=== PATIENT | female | born 1980 | race Caucasian/White ===

== ENCOUNTER 2016-08-25 06:32 | Emergency (ER) | payer MEDICAID, OTHER ==
[2016-08-25 06:41] VITALS: TEMP 98.4
[2016-08-25] MEDS ORDERED: LORazepam 1 MG TAB ONE (07:05)
--- NOTE | 2016-08-25 07:08 | EDPHY ---
H & P Time Seen by Provider: 08/25/16 06:56 HPI/ROS: CHIEF COMPLAINT: Anxiety HISTORY OF PRESENT ILLNESS: Patient is a 35-year-old female with a history of anxiety and mood disorder who presents emergency department stating "I am having a panic attack." Patient woke at 4:30 a.m. with her panic attack. She feels anxious and agitated. She feels as though she can't catch her breath. The patient states the recently she had the stomach flu. This resulted in some mild low back pain. She drank heavily 2 nights ago had nothing to drink last night. She has no recent drug use. She denies chest pain. She describes her symptoms as typical of her anxiety. She did not take any anti anxiety medicine today. She ran out of Scholrly. She asked to speak to therapist. Patient denies suicidal or homicidal ideation REVIEW OF SYSTEMS: My complete review of systems is negative except as mentioned in the HPI. Past Medical/Surgical History: Includes mood disorder, anxiety Past surgical history: Appendectomy, tonsillectomy, tubal ligation, cholecystectomy Social history: The patient smokes occasionally. She drinks alcohol occasionally. No drug use. Smoking Status: Current every day smoker Physical Exam: My vitals noted. 36.9, 125/87, 71, 20, 98% on room air GENERAL: Anxious appearing, alert. HEENT: Eyes normal to inspection, normal pharynx, no signs of dehydration. Arion hair. NECK: No thyromegaly, no lymphadenopathy, supple. RESPIRATORY: Clear to auscultation bilaterally, no rales, rhonchi or wheezing. CVS: Regular rate and rhythm, no rubs, murmurs, or gallops. ABDOMEN: Soft, nontender, nondistended, no organomegaly. Benign BACK: Normal to inspection, no CVA tenderness. SKIN: Normal color, no rash, warm, dry. No pallor. EXTREMITIES: No pedal edema, no calf tenderness, no Homans sign or cords, no joint swelling. NEURO/PSYCH: Alert and oriented, anxious and tearful, normal motor sensory exam. Constitutional: Initial Vital Signs Temperature (C) 36.9 C 08/25/16 06:36 Heart Rate 71 08/25/16 06:36 Respiratory Rate 20 08/25/16 06:36 Blood Pressure 125/87 H 07/16/17 06:36 O2 Sat (%) 98 08/25/16 06:36 O2 Delivery Mode Room Air Allergies/Adverse Reactions: dog dander Allergy (Verified 08/25/16 06:35) morphine Allergy (Verified 08/25/16 06:35) steroids Allergy (Uncoded 08/25/16 06:35) Home Medications: Medication Instructions Recorded Lamictal 11/19/14 Paxil 11/19/14 Topamax 11/19/14 Albuterol 08/25/16 LORAZEPAM 08/25/16 LORazepam [Ativan (*)] 1 mg PO TID #11 tab 08/25/16 Medical Decision Making ED Course/Re-evaluation: In the emergency department I discussed possible etiologies with the patient. Patient will be given Ativan 2 mg orally. She agrees with this plan. She requested this see a therapist. They were contacted. Rechecked the patient on numerous occasions. She was stable during her stay. Therapy evaluated the patient. They felt she was safe for discharge. She has a good follow-up plan. On recheck the patient felt better. Patient was given warnings prior to leaving. She will return with worsening symptoms. I answered all her questions prior to leaving. She feels comfortable with the plan. Differential Diagnosis: My differential includes but is not limited to anxiety, bipolar disorder, thyroid disease, suicidal ideation, homicidal ideation, disc herniation, low back strain, dissection, aneurysm, small-bowel obstruction, pancreatitis - Data Points Medications Given: Discontinued Medications Lorazepam (Ativan Injection) 2 mg IVP EDNOW ONE Stop: 08/25/16 07:11 Last Admin: 08/25/16 07:12 Dose: 2 mg Departure - Departure Disposition: Home, Routine, Self-Care Clinical Impression: Anxiety Condition: Good Instructions: Anxiety (ED) Additional Instructions: Return with worsening anxiety, thoughts of wanting to hurt yourself, increasing abdominal pain, or any other concerns. Referrals: KARRIE PINTO [Other] - 2-3 days without fail Prescriptions: LORazepam [Ativan (*)] 1 mg PO TID #11 tab
[2016-08-25] MEDS ORDERED: LORazepam 2 MG/ML INJ IVP ONE (07:10)
[2016-08-25 08:20] VITALS: BP 122/79; PULSE 57; RESP 16; O2SAT 96
== END 2016-08-25 08:21 | disposition home or self-care (01) ==
DX: F41.9 Anxiety disorder, unspecified (principal); F17.200 Nicotine dependence, unspecified, uncomplicated
CPT/HCPCS: 96374